=== PATIENT | female | born 1950 | race Caucasian/White ===

== ENCOUNTER → 2016-08-21 | Outpatient (CLI) | payer BC | LOC: RAD 07:34 | DX: G24.9 Dystonia, unspecified (principal) | CPT/HCPCS: A9579 ==

== ENCOUNTER → 2018-06-12 | Outpatient (CLI) | payer MEDICARE, BC ==
[2018-06-12 16:55] LABS: HEMATOCRIT 37.1 % (37.0-47.0); HEMOGLOBIN 13.9 g/dL (12.5-16.0); MEAN CELL VOLUME 103 fl (78-100); MEAN CORPUSCULAR HGB CONC 38 g/dL (33-37); MEAN PLATELET VOLUME 9.3 fl (7.4-10.4); PLATELET COUNT 214 K/mm3 (130-400); RED BLOOD COUNT 3.61 M/mm3 (4.10-5.30); RED CELL DISTRIBUTION WIDTH 13.2 % (11.5-14.5); WHITE BLOOD COUNT 4.2 K/mm3 (4.8-10.8)
[2018-06-12 16:58] LABS: ALBUMIN 4.3 g/dL (3.5-5.0); CALCIUM 9.2 mg/dL (8.4-10.2); POTASSIUM 3.9 mmol/L (3.6-5.0); TOTAL BILIRUBIN 0.9 mg/dL (0.2-1.3); TOTAL PROTEIN 7.4 g/dL (6.3-8.2)
[2018-06-12 18:03] LABS: MEAN CORPUSCULAR HEMOGLOBIN 39 pg (27-31)
[2018-06-12 20:17] LABS: LYMPHOCYTE 33 % (20-51); MONOCYTE 13 % (3-10); NEUTROPHILS 54 % (42-75)
== END ==
LOC: LAB 16:19
PROVIDERS: Family Medicine
DX: Z01.419 Encounter for gynecological examination (general) (routine) without abnormal findings (principal); E11.9 Type 2 diabetes mellitus without complications

== ENCOUNTER → 2018-06-17 | Outpatient (CLI) | payer MEDICARE, BC | LOC: MAMMO 13:42 | DX: Z12.31 Encounter for screening mammogram for malignant neoplasm of breast (principal); N63.14 Unspecified lump in the right breast, lower inner quadrant ==

== ENCOUNTER → 2018-06-25 | Outpatient (CLI) | payer MEDICARE, BC | LOC: MAMMO 12:39 | DX: N63.12 Unspecified lump in the right breast, upper inner quadrant (principal) ==

== ENCOUNTER → 2020-09-19 | Outpatient (CLI) | payer MEDICARE, BC | LOC: RAD 10:26 | DX: M25.472 Effusion, left ankle (principal); R60.0 Localized edema ==

== ENCOUNTER → 2020-09-19 | Outpatient (CLI) | payer MEDICARE, BC ==
[2020-09-19 15:11] LABS: BASO # 0.1 (0.02-0.10); EOS # 0.1 (0.04-0.40); HEMOGLOBIN 12.5 g/dL (12.5-16.0); LYMPH# 1.2 (1.50-4.00); MEAN CELL VOLUME 113 fl (78-100); MEAN CORPUSCULAR HGB CONC 34 g/dL (33-37); MEAN PLATELET VOLUME 9.1 fl (7.4-10.4); MONO # 0.5 (0.20-0.80); NEU # 3.5 (1.40-6.50); PLATELET COUNT 188 K/mm3 (130-400); RED BLOOD COUNT 3.29 M/mm3 (4.10-5.30); RED CELL DISTRIBUTION WIDTH 13.4 % (11.5-14.5); WHITE BLOOD COUNT 5.2 K/mm3 (4.8-10.8)
[2020-09-19 15:15] LABS: MEAN CORPUSCULAR HEMOGLOBIN 38 pg (27-31)
[2020-09-19 15:21] LABS: POTASSIUM 3.6 mmol/L (3.5-5.1)
[2020-09-19 15:22] LABS: ALBUMIN 2.7 g/dL (3.4-4.8)
[2020-09-19 15:23] LABS: CALCIUM 7.9 mg/dL (8.3-10.5)
[2020-09-19 15:24] LABS: TOTAL PROTEIN 6.4 g/dL (6.2-8.1)
[2020-09-19 15:26] LABS: TOTAL BILIRUBIN 1.8 mg/dL (0.2-1.2)
== END ==
LOC: LAB 14:47
PROVIDERS: Family Medicine
DX: I87.2 Venous insufficiency (chronic) (peripheral) (principal); E78.5 Hyperlipidemia, unspecified; E11.9 Type 2 diabetes mellitus without complications; E55.9 Vitamin D deficiency, unspecified

== ENCOUNTER → 2020-09-28 | Outpatient (CLI) | payer MEDICARE, BC | LOC: VAS 15:32 | DX: R07.9 Chest pain, unspecified (principal) ==

== ENCOUNTER 2021-01-15 19:17 | Emergency (ER) | payer MEDICARE, BC ==
[2021-01-15 20:02] LABS: HEMATOCRIT 33.7 % (37.0-47.0); MEAN CELL VOLUME 108 fl (78-100); MEAN CORPUSCULAR HEMOGLOBIN 39 pg (27-31); MEAN CORPUSCULAR HGB CONC 36 g/dL (33-37); MEAN PLATELET VOLUME 8.4 fl (7.4-10.4); PLATELET COUNT 150 K/mm3 (130-400); RED BLOOD COUNT 3.11 M/mm3 (4.10-5.30); RED CELL DISTRIBUTION WIDTH 14.7 % (11.5-14.5); WHITE BLOOD COUNT 3.7 K/mm3 (4.8-10.8)
[2021-01-15 20:12] LABS: ALBUMIN 2.5 g/dL (3.4-4.8); POTASSIUM 3.5 mmol/L (3.5-5.1)
[2021-01-15 20:13] LABS: CALCIUM 8.2 mg/dL (8.3-10.5)
[2021-01-15 20:14] LABS: TOTAL PROTEIN 6.3 g/dL (6.2-8.1)
[2021-01-15 20:16] LABS: TOTAL BILIRUBIN 2.1 mg/dL (0.2-1.2)
[2021-01-15 20:18] LABS: LYMPHOCYTE 15 % (20-51); MONOCYTE 14 % (3-10); NEUTROPHILS 71 % (42-75)
[2021-01-15 21:42] LABS: URINE APPEARANCE CLEAR; URINE BILIRUBIN NEGATIVE (NEGATIVE); URINE BLOOD NEGATIVE (NEGATIVE); URINE COLOR YELLOW; URINE GLUCOSE NEGATIVE (NEGATIVE); URINE KETONE NEGATIVE (NEGATIVE); URINE LEUKOCYTE ESTERASE NEGATIVE (NEGATIVE); URINE MUCUS PRESENT (NOT PRESENT); URINE NITRATE NEGATIVE (NEGATIVE); URINE PROTEIN(semi-quant) NEGATIVE (NEGATIVE); URINE UROBILINOGEN NORMAL (NORMAL)
[2021-01-15 21:45] LABS: PARTIAL THROMBOPLASTIN TIME 26.9 SECONDS (21.0-32.0); PROTHROMBIN TIME 12.7 SECONDS (9.0-12.0)
[2021-01-16 00:33] VITALS: BP 143/85
== END 2021-01-16 00:04 | disposition short-term general hospital (02) ==
LOC: ED 19:17
PROVIDERS: Nurse Practitioner
DX: R18.8 Other ascites (principal); I10 Essential (primary) hypertension
CPT/HCPCS: J0696; J2405; J7030; Q9967

== ENCOUNTER → 2021-01-24 | Outpatient (CLI) | payer MEDICARE, BC ==
[2021-01-16 00:33] VITALS: BP 143/85
[2021-01-24 12:27] LABS: ALBUMIN 2.9 g/dL (3.4-4.8); POTASSIUM 3.4 mmol/L (3.5-5.1)
[2021-01-24 12:28] LABS: CALCIUM 8.2 mg/dL (8.3-10.5)
[2021-01-24 12:29] LABS: TOTAL PROTEIN 6.7 g/dL (6.2-8.1)
[2021-01-24 12:48] LABS: BASO # 0.08 (0.02-0.10); EOS # 0.02 (0.04-0.40); EOS % 0.5 % (1.0-5.0); HEMATOCRIT 34.6 % (37.0-47.0); HEMOGLOBIN 12.1 g/dL (12.5-16.0); LYMPH# 0.97 (1.50-4.00); MEAN CELL VOLUME 109 fl (78-100); MEAN CORPUSCULAR HEMOGLOBIN 38 pg (27-31); MEAN CORPUSCULAR HGB CONC 35 g/dL (33-37); MEAN PLATELET VOLUME 8.5 fl (7.4-10.4); MONO # 0.55 (0.20-0.80); NEU # 2.51 (1.40-6.50); PLATELET COUNT 237 K/mm3 (130-400); RED BLOOD COUNT 3.17 M/mm3 (4.10-5.30); WHITE BLOOD COUNT 4.1 K/mm3 (4.8-10.8)
== END ==
LOC: LAB 12:07
PROVIDERS: Family Medicine
DX: K74.60 Unspecified cirrhosis of liver (principal); D64.9 Anemia, unspecified

== ENCOUNTER → 2021-08-01 | Outpatient (CLI) | payer MEDICARE, BC | LOC: RAD 12:40 | DX: K70.31 Alcoholic cirrhosis of liver with ascites (principal) ==

== ENCOUNTER → 2021-11-27 | Outpatient (CLI) | payer MEDICARE, BC ==
[2021-11-27 13:53] LABS: HEMATOCRIT 41.9 % (37.0-47.0); HEMOGLOBIN 14.6 g/dL (12.5-16.0); RED BLOOD COUNT 4.35 M/mm3 (4.10-5.30); RED CELL DISTRIBUTION WIDTH 12.3 % (11.5-14.5); WHITE BLOOD COUNT 6.2 K/mm3 (4.8-10.8)
[2021-11-27 14:19] LABS: ALBUMIN 4.1 g/dL (3.4-4.8)
[2021-11-27 14:21] LABS: CALCIUM 10.3 mg/dL (8.3-10.5)
[2021-11-27 14:22] LABS: TOTAL PROTEIN 7.4 g/dL (6.2-8.1)
[2021-11-27 14:24] LABS: TOTAL BILIRUBIN 0.9 mg/dL (0.2-1.2)
[2021-11-27 14:37] LABS: PROTHROMBIN TIME 10.4 SECONDS (9.0-12.0)
== END ==
LOC: LAB 13:18
PROVIDERS: Internal Medicine Gastroenterology
DX: K70.31 Alcoholic cirrhosis of liver with ascites (principal)

== ENCOUNTER → 2023-10-31 | Outpatient (CLI) | payer MEDICARE, BC ==
[2023-10-31 13:57] LABS: BASO # 0.03 K/mm3 (0.02-0.10); EOS # 0.06 K/mm3 (0.04-0.40); EOS % 1.1 % (1.0-5.0); HEMATOCRIT 45.4 % (37.0-47.0); HEMOGLOBIN 15.7 g/dL (12.5-16.0); LYMPH# 1.38 K/mm3 (1.50-4.00); MEAN CELL VOLUME 93 fl (78-100); MEAN CORPUSCULAR HEMOGLOBIN 32 pg (27-31); MEAN CORPUSCULAR HGB CONC 35 g/dL (33-37); MEAN PLATELET VOLUME 9.7 fl (7.4-10.4); MONO # 0.46 K/mm3 (0.20-0.80); PLATELET COUNT 239 K/mm3 (130-400); RED BLOOD COUNT 4.91 M/mm3 (4.10-5.30); RED CELL DISTRIBUTION WIDTH 12.2 % (11.5-14.5); WHITE BLOOD COUNT 5.4 K/mm3 (4.8-10.8)
[2023-10-31 14:14] LABS: ALBUMIN 4.2 g/dL (3.4-4.8)
[2023-10-31 14:16] LABS: TOTAL PROTEIN 7.8 g/dL (6.2-8.1)
[2023-10-31 14:18] LABS: TOTAL BILIRUBIN 0.5 mg/dL (0.2-1.2)
== END ==
LOC: LAB 13:44
PROVIDERS: Nurse Practitioner
DX: Z00.00 Encounter for general adult medical examination without abnormal findings (principal); I10 Essential (primary) hypertension; R63.5 Abnormal weight gain; R73.01 Impaired fasting glucose

== ENCOUNTER → 2024-06-14 | Outpatient (CLI) | payer MEDICARE, BC ==
[2024-06-14 14:14] LABS: BASO # 0.02 K/mm3 (0.02-0.10); EOS # 0.09 K/mm3 (0.04-0.40); EOS % 1.6 % (1.0-5.0); HEMOGLOBIN 14.4 g/dL (12.5-16.0); LYMPH# 1.34 K/mm3 (1.50-4.00); MEAN CELL VOLUME 94 fl (78-100); MEAN CORPUSCULAR HEMOGLOBIN 32 pg (27-31); MEAN CORPUSCULAR HGB CONC 34 g/dL (33-37); MEAN PLATELET VOLUME 9.2 fl (7.4-10.4); MONO # 0.31 K/mm3 (0.20-0.80); NEU # 3.68 K/mm3 (1.40-6.50); PLATELET COUNT 220 K/mm3 (130-400); RED BLOOD COUNT 4.46 M/mm3 (4.10-5.30); RED CELL DISTRIBUTION WIDTH 12.2 % (11.5-14.5); WHITE BLOOD COUNT 5.5 K/mm3 (4.8-10.8)
[2024-06-14 14:16] LABS: ALBUMIN 4.1 g/dL (3.4-4.8)
[2024-06-14 14:17] LABS: CALCIUM 9.5 mg/dL (8.3-10.5)
[2024-06-14 14:19] LABS: TOTAL PROTEIN 7.3 g/dL (6.2-8.1)
[2024-06-14 14:20] LABS: TOTAL BILIRUBIN 0.5 mg/dL (0.2-1.2)
[2024-06-14 14:33] LABS: PROTHROMBIN TIME 10.2 SECONDS (9.0-12.0)
== END ==
LOC: LAB 13:57
PROVIDERS: Nurse Practitioner Primary Care
DX: K70.9 Alcoholic liver disease, unspecified (principal); L65.9 Nonscarring hair loss, unspecified